=== PATIENT | female | born 1965 | race Caucasian/White ===

== ENCOUNTER 2021-07-21 13:41 | Emergency (ER) | payer OTHER ==
[2021-07-21 14:15] LABS: BASOPHILS # (AUTO) 0.1 10^3/uL (0.0-0.1); BASOPHILS % (AUTO) 1 % (0-10); EOSINOPHILS # (AUTO) 0.5 10^3/uL (0.0-0.3); EOSINOPHILS % (AUTO) 3 % (0-10); HEMATOCRIT 39 % (35-52); HEMOGLOBIN 13.1 g/dL (11.5-16.0); LYMPHOCYTES # (AUTO) 2.6 10^3/uL (1.0-4.0); LYMPHOCYTES % (AUTO) 18 % (12-44); MEAN CORPUSCULAR HEMOGLOBIN 30 pg (25-34); MEAN CORPUSCULAR HGB CONC 34 g/dL (32-36); MEAN CORPUSCULAR VOLUME 88 fL (80-99); MEAN PLATELET VOLUME 9.4 fL (9.0-12.2); MONOCYTES # (AUTO) 0.8 10^3/uL (0.0-1.0); MONOCYTES % (AUTO) 6 % (0-12); NEUTROPHILS # (AUTO) 10.7 10^3/uL (1.8-7.8); NEUTROPHILS % (AUTO) 73 % (42-75); PLATELET COUNT 281 10^3/uL (130-400); WHITE BLOOD COUNT 14.7 10^3/uL (4.3-11.0)
[2021-07-21] MEDS ORDERED: FAMOTIDINE 20MG/2ML IV (PEPCID) IVP ONE (14:15)
[2021-07-21] MEDS ORDERED: morphine INJ 10 MG/ML 1ML (SYR OR VIAL) IVP STA ×2 (14:15→15:24)
[2021-07-21] MEDS ORDERED: ONDANSETRON 4 MG/2 ML (SDV) Z0FRAN IVP ONE (14:15)
[2021-07-21 14:16] LABS: BILIRUBIN,URINE NEGATIVE (NEGATIVE); CLARITY,URINE SL CLOUDY; COLOR,URINE YELLOW; GLUCOSE, URINE (UA) NEGATIVE (NEGATIVE); KETONES,URINE TRACE (NEGATIVE); LEUKOCYTE ESTERASE ,URINE NEGATIVE (NEGATIVE); NITRITE,URINE NEGATIVE (NEGATIVE); PH,URINE 6.5 (5-9); PROTEIN,URINE NEGATIVE (NEGATIVE)
--- NOTE | 2021-07-21 14:22 | ED Abdominal Pain ---
General Chief Complaint: Abdominal/GI Problems Stated Complaint: BACK/ABD PAIN; VOMITING; FEVER Nursing Triage Note: PT REPORTS ABDOMINAL WENDI MIDLINE WITH PAIN RADIATION TO BACK THAT STARTED TWO HOURS AGO. REPORTS N/V Source of Information: Patient Exam Limitations: No Limitations History of Present Illness Date Seen by Provider: Jul 21, 2021 Time Seen by Provider: 13:45 Initial Comments Patient is a 55-year-old female presents acute onset. Local pain nausea vomiting starting approximately 2 hours ago. Moderate abdominal cramping worse with vomiting. Patient reports multiple episodes of vomiting and feeling acutely ill. She denies hematemesis coffee-ground emesis or bilious emesis. No diarrhea. Reports body aches and sweats. No fever, no hematemesis coffee- ground emesis. No other acute symptoms or complaints. No prior abdominal surgery. Timing/Duration: 4-6 Hours Severity/Quality: Moderate Location: Other Radiation: Other Activities at Onset: Other Modifying Factors: Improves With Other Associated Symptoms: Other Allergies and Home Medications Allergies Coded Allergies: codeine (Verified Allergy, Severe, 07/21/21) Patient Home Medication List Home Medication List Reviewed: Yes Review of Systems Review of Systems Constitutional: see HPI EENTM: See HPI Respiratory: See HPI Cardiovascular: See HPI Gastrointestinal: See HPI Genitourinary: See HPI Musculoskeletal: see HPI Skin: see HPI Psychiatric/Neurological: See HPI Endocrine: See HPI Hematologic/Lymphatic: See HPI All Other Systems Reviewed Negative Unless Noted: Yes Past Xiqxrkv-Trwrzx-Advwjy Hx Patient Social History Tobacco Use?: Yes Smoking Status: Never a Smoker Substance use?: No Alcohol Use?: No Pt feels they are or have been: No Immunizations Up To Date First/Initial COVID19 Vaccinat: UNKNOWN Second COVID19 Vaccination Rakesh: UNKNOWN Third COVID19 Vaccination Date: UNKNOWN Physical Exam Vital Signs Vital Signs - First Documented 07/21/21 07/21/21 13:46 14:15 Temp 36.0 Pulse 51 Resp 18 B/P (MAP) 113/71 (85) Pulse Ox 97 O2 Delivery Room Air Capillary Refill : Height/Weight/BMI Height: '" Weight: lbs. oz. kg; BMI Method: General Appearance: WD/WN, no apparent distress HEENT: PERRL/EOMI, pharynx normal Neck: non-tender, full range of motion Respiratory: lungs clear, normal breath sounds Cardiovascular: normal peripheral pulses, regular rate, rhythm Gastrointestinal: soft, other (tenderness) Extremities: normal range of motion, non-tender Back: normal inspection, no CVA tenderness Focused Exam Sepsis Stage: Ruled Out Progress/Results/Core Measures Results/Orders Lab Results Laboratory Tests Test 07/21/21 13:00 07/21/21 13:50 07/21/21 14:07 Range/Units White Blood Count 14.7 H 4.3-11.0 10^3/uL Red Blood Count 4.43 3.80-5.11 10^6/uL Hemoglobin 13.1 11.5-16.0 g/dL Hematocrit 39 35-52 % Mean Corpuscular Volume 88 80-99 fL Mean Corpuscular Hemoglobin 30 25-34 pg Mean Corpuscular Hemoglobin Concent 34 32-36 g/dL Red Cell Distribution Width 13.5 10.0-14.5 % Platelet Count 281 130-400 10^3/uL Mean Platelet Volume 9.4 9.0-12.2 fL Immature Granulocyte % (Auto) 1 % Neutrophils (%) (Auto) 73 42-75 % Lymphocytes (%) (Auto) 18 12-44 % Monocytes (%) (Auto) 6 0-12 % Eosinophils (%) (Auto) 3 0-10 % Basophils (%) (Auto) 1 0-10 % Neutrophils # (Auto) 10.7 H 1.8-7.8 10^3/uL Lymphocytes # (Auto) 2.6 1.0-4.0 10^3/uL Monocytes # (Auto) 0.8 0.0-1.0 10^3/uL Eosinophils # (Auto) 0.5 H 0.0-0.3 10^3/uL Basophils # (Auto) 0.1 0.0-0.1 10^3/uL Immature Granulocyte # (Auto) 0.1 0.0-0.1 10^3/uL Neutrophils % (Manual) 66 % Lymphocytes % (Manual) 16 % Monocytes % (Manual) 4 % Eosinophils % (Manual) 2 % Basophils % (Manual) 2 % Band Neutrophils 10 % Sodium Level 139 135-145 MMOL/L Potassium Level 3.7 3.6-5.0 MMOL/L Chloride Level 102 98-107 MMOL/L Carbon Dioxide Level 25 21-32 MMOL/L Anion Gap 12 5-14 MMOL/L Blood Urea Nitrogen 13 7-18 MG/DL Creatinine 0.65 0.60-1.30 MG/DL Estimat Glomerular Filtration Rate 104 BUN/Creatinine Ratio 20 Glucose Level 121 H 70-105 MG/DL Calcium Level 9.3 8.5-10.1 MG/DL Corrected Calcium 8.5-10.1 MG/DL Total Bilirubin 0.4 0.1-1.0 MG/DL Aspartate Amino Transf (AST/SGOT) 33 5-34 U/L Alanine Aminotransferase (ALT/SGPT) 38 0-55 U/L Alkaline Phosphatase 78 40-136 U/L Total Protein 7.1 6.4-8.2 GM/DL Albumin 4.7 H 3.2-4.5 GM/DL Lipase 17 8-78 U/L Urine Color YELLOW Urine Clarity SL CLOUDY Urine pH 6.5 5-9 Urine Specific [place] 1.020 1.016-1.022 Urine Protein NEGATIVE NEGATIVE Urine Glucose (UA) NEGATIVE NEGATIVE Urine Ketones TRACE H NEGATIVE Urine Nitrite NEGATIVE NEGATIVE Urine Bilirubin NEGATIVE NEGATIVE Urine Urobilinogen 0.2 < = 1.0 MG/DL Urine Leukocyte Esterase NEGATIVE NEGATIVE Urine RBC (Auto) NEGATIVE NEGATIVE Urine RBC NONE /HPF Urine WBC 0-2 /HPF Urine Squamous Epithelial Cells 0-2 /HPF Urine Crystals PRESENT H /LPF Urine Amorphous Sediment FEW JULIET PHOSPHATE H /LPF Urine Bacteria FEW H /HPF Urine Casts NONE /LPF Urine Mucus SMALL H /LPF Urine Culture Indicated NO Glucometer 110 70-110 MG/DL My Orders Orders - TOÑO ALEJANDRO DO Cbc With Automated Diff (07/21/21 14:07) Comprehensive Metabolic Panel (07/21/21 14:07) Lipase (07/21/21 14:07) Urinalysis (07/21/21 14:07) Ondansetron Injection (Zofran Injectio (07/21/21 14:15) Famotidine Injection (Pepcid Injection) (07/21/21 14:15) Morphine Injection (Morphine Injection (07/21/21 14:15) Manual Differential (07/21/21 13:00) Ns Iv 1000 Ml (Sodium Chloride 0.9%) (07/21/21 15:15) Morphine Injection (Morphine Injection (07/21/21 15:24) Ekg Tracing (07/21/21 15:27) Ct Abdomen/Pelvis W (07/21/21 15:29) Iohexol Injection (Omnipaque 350 Mg/Ml 1 (07/21/21 15:45) Received Contrast (Hold Metformin- Contr (07/21/21 15:45) Sodium Chloride Flush (Catheter Flush Sy (07/21/21 15:45) Ns (Ivpb) (Sodium Chloride 0.9% Ivpb Bag (07/21/21 15:45) Medications Given in ED Current Medications Medications Dose Ordered Sig/Lia Route Start Time Stop Time Status Last Admin Dose Admin Famotidine 20 mg ONCE ONCE IVP 07/21/21 14:15 07/21/21 14:17 DC 07/21/21 14:22 20 MG Iohexol 100 ml ONCE ONCE IV 07/21/21 15:45 07/21/21 15:46 DC 07/21/21 15:48 100 ML Ondansetron HCl 4 mg ONCE ONCE IVP 07/21/21 14:15 07/21/21 14:17 DC 07/21/21 14:22 4 MG Sodium Chloride 10 ml NEEDED PRN IV 07/21/21 15:45 07/21/21 15:48 10 ML Sodium Chloride 100 ml ONCE ONCE IV 07/21/21 15:45 07/21/21 15:46 DC 07/21/21 15:48 100 ML Vital Signs/I&O 07/21/21 07/21/21 13:46 14:15 Temp 36.0 Pulse 51 Resp 18 B/P (MAP) 113/71 (85) Pulse Ox 97 O2 Delivery Room Air Blood Pressure Mean: 85 Departure Communication (Admissions) CT abdomen pelvis: No acute findings per radiology report. Incidental findings of hepatic cysts. Acute onset abdominal pain nausea vomiting relieved in the emergency department with treatment. Patient resting comfortably. No acute process identified on lab or imaging studies. Recommendations are watchful waiting supportive care with PCP follow-up. Return precautions reviewed. Patient verbalizes understanding agreement with discharge instructions prior to departure. Impression Primary Impression: Abdominal pain Additional Impression: Nausea and vomiting Disposition: HOME, SELF-CARE Condition: Stable Departure-Patient Inst. Decision time for Depature: 17:11 Referrals: KARLA RAMACHANDRAN (PCP) Primary Care Physician Patient Instructions: Nausea and Vomiting, Adult, Abdominal Pain, Adult ED Add. Discharge Instructions: You were evaluated in the emergency department for abdominal pain nausea and vomiting. Please take newly prescribed nausea medication as directed and drink clear liquids only for the next 6 to 12 hours. Then gradually increase to a bland soft diet as tolerated. Follow-up with your PCP in 2 to 3 days if symptoms persist. Return to the ED if new or worsening symptoms. All discharge instructions reviewed with patient and/or family. Voiced understanding. Scripts Ondansetron (Ondansetron Odt) 4 Mg Tab.rapdis 4 MG PO Q6H, #10 TAB Prov: TOÑO ALEJANDRO DO 07/21/21 TOÑO ALEJANDRO DO Jul 21, 2021 14:22
[2021-07-21 14:23] LABS: AMORPHOUS SEDIMENT,UR FEW AMOR PHOSPHATE /LPF; BACTERIA,URINE FEW /HPF; SQUAMOUS EPITHELIAL CELL,UR 0-2 /HPF; WBC,URINE 0-2 /HPF
[2021-07-21 14:33] LABS: POTASSIUM 3.7 MMOL/L (3.6-5.0); SODIUM 139 MMOL/L (135-145)
[2021-07-21 14:34] LABS: ALANINE AMINOTRANSFERASE 38 U/L (0-55); ALBUMIN 4.7 GM/DL (3.2-4.5); ALKALINE PHOSPHATASE 78 U/L (40-136); BILIRUBIN,TOTAL 0.4 MG/DL (0.1-1.0); BUN/CREATININE RATIO 20; CALCIUM 9.3 MG/DL (8.5-10.1); CARBON DIOXIDE 25 MMOL/L (21-32); CHLORIDE 102 MMOL/L (98-107); CREATININE SERUM 0.65 MG/DL (0.60-1.30); GFR ESTIMATED 104; GLUCOSE 121 MG/DL (70-105); LIPASE 17 U/L (8-78); TOTAL PROTEIN 7.1 GM/DL (6.4-8.2)
[2021-07-21 14:35] LABS: BAND NEUTROPHILS 10 %; BASOPHILS % (MANUAL) 2 %; EOSINOPHILS % (MANUAL) 2 %; LYMPHOCYTES % (MANUAL) 16 %; MONOCYTES % (MANUAL) 4 %; NEUTROPHILS % (MANUAL) 66 %
[2021-07-21] MEDS ORDERED: NS IV 1000 ML 1,000 ML IV SCH (15:15)
[2021-07-21] MEDS ORDERED: IOHEXOL 350 MG/ML 100 ML (OMNIPAQUE 350) VIAL IV ONE (15:45)
[2021-07-21] MEDS ORDERED: CATHETER FLUSH 10 ML SYR IV PRN (15:45)
[2021-07-21] MEDS ORDERED: HOLD METFORMIN - RECEIVED CONTRAST 20 ML VIAL IV SCH (15:45)
[2021-07-21] MEDS ORDERED: NS 100 ML (IVPB) BAG IV ONE (15:45)
--- NOTE | 2021-07-21 16:11 | Diagnostic Imaging Report ---
PROCEDURE: CT abdomen and pelvis with contrast. TECHNIQUE: Multiple contiguous axial images were obtained through the abdomen and pelvis after administration of intravenous contrast. Auto Exposure Controls were utilized during the CT exam to meet ALARA standards for radiation dose reduction. All CT scans use one or more of the following dose optimizing techniques: automated exposure control, MA and/or KvP adjustment based on patient size and exam type or iterative reconstruction. INDICATION: Periumbilical pain with nausea and emesis. FINDINGS: There are multiple water-density nodules in the liver with the largest in the right lobe reaching approximately 7 cm in diameter. These are most compatible with hepatic cysts. There is no biliary ductal dilatation. Gallbladder is unremarkable in appearance. No pancreatic, adrenal gland, splenic or renal abnormality is identified. There is an approximately 2 cm in diameter nodule along the upper aspect of the greater curvature of the stomach. This could represent leiomyoma. There is no free fluid in the abdomen or pelvis. The colon is decompressed. This does limit evaluation. There is no transition point seen to indicate an obstruction. Unopacified urinary bladder is unremarkable in appearance. There is no evidence of focal inflammation or organized fluid collection. IMPRESSION: 1. Numerous hepatic cysts with largest in the right lobe reaching 7 cm in diameter. 2. 2 cm nodule along the lateral aspect of the upper stomach is nonspecific, although this could represent leiomyoma. Consideration could be given to endoscopic assessment or short-term CT follow-up in six months. Dictated by: Dictated on workstation # [id number]
[2021-07-21] MEDS ORDERED: ONDA4TAB11 PO (17:12)
[2021-07-21 17:18] VITALS: BP 99/62
== END 2021-07-21 17:15 | disposition home or self-care (01) ==
LOC: ER FS 13:43
DX: R10.9 Unspecified abdominal pain (principal); R11.2 Nausea with vomiting, unspecified; Z72.0 Tobacco use
CPT/HCPCS: 36415; 74177; 80053; 81000; 82947; 83690; 85007; 85027; 93005; Q9967